=== PATIENT | female | born 1950 | race Caucasian/White ===

== ENCOUNTER 2019-07-13 17:34 | Emergency (ER) | payer OTHER, MEDICARE ==
--- NOTE | 2019-07-13 18:25 | ER Document Report ---
ED Medical Screen (RME) - General Chief Complaint: Fall Injury Stated Complaint: HEAD INJURY Time Seen by Provider: 07/13/19 18:17 Mode of Arrival: Wheelchair Information source: Patient Notes: 68-year-old female presented to ED for complaint of pain to the left side of her head and her face. She states she went to school with her granddaughter and fell on the cement face first injuring her face cheek nose and left knee. She has multiple abrasions to her left knee. She states the school nurse cleaned up enough in order to be able to come to the emergency room and then she is come to the emergency room. She states she just got off Xarelto from the case assembler about 3 days ago. She is alert oriented respirations regular and unlabored speaking in full sentences. She states most of the pain is in her head and in her nose and cheek. I have greeted and performed a rapid initial assessment of this patient. A comprehensive ED assessment and evaluation of the patient, analysis of test results and completion of medical decision making process will be conducted by an additional ED providers. - Related Data Allergies/Adverse Reactions: naproxen [From Naprosyn] Allergy (Verified 07/13/19 17:36) nitrofurantoin [From Macrodantin] Allergy (Verified 07/13/19 17:36) Penicillins Allergy (Verified 07/13/19 17:36) simvastatin [From Zocor] Allergy (Verified 07/13/19 17:36) Sulfa (Sulfonamide Antibiotics) Allergy (Verified 07/13/19 17:36) Physical Exam - Vital signs Vitals: Temp Pulse Resp BP Pulse Ox 98.0 F 80 15 97/71 L 96 07/13/19 17:41 07/13/19 17:41 07/13/19 17:41 07/13/19 17:41 07/13/19 17:41 Course - Vital Signs Vital signs: Temp Pulse Resp BP Pulse Ox 98.0 F 80 15 97/71 L 96 07/13/19 17:41 07/13/19 17:41 07/13/19 17:41 07/13/19 17:41 07/13/19 17:41
--- NOTE | 2019-07-13 18:50 | RADIOLOGY REPORT (SQ) ---
EXAM DESCRIPTION: KNEE LEFT 4 VIEW COMPLETED DATE/TIME: 07/13/2019 6:36 pm REASON FOR STUDY: fall hit head left knee COMPARISON: None. NUMBER OF VIEWS: Four views. TECHNIQUE: AP, lateral, and both oblique radiographic images acquired of the left knee. LIMITATIONS: None. FINDINGS: MINERALIZATION: Normal. BONES: No acute fracture or dislocation. No worrisome bone lesions. JOINT: No effusion. Status post medial compartment arthroplasty. SOFT TISSUES: No soft tissue swelling. No radio-opaque foreign body. OTHER: No other significant finding. IMPRESSION: No fracture or dislocation of the left knee. Status post medial compartment arthroplast y. TECHNICAL DOCUMENTATION: JOB ID: [id number] [employer]- All Rights Reserved Reading location - IP/workstation name: [email or web address]
--- NOTE | 2019-07-13 19:09 | RADIOLOGY REPORT (SQ) ---
EXAM DESCRIPTION: CT HEAD WITHOUT COMPLETED DATE/TIME: 07/13/2019 6:53 pm REASON FOR STUDY: fall hit head left knee COMPARISON: None. TECHNIQUE: Axial images acquired through the brain without intravenous contrast. Images reviewed wit h bone, brain and subdural windows. Images stored on PACS. All CT scanners at this facility use dose modulation, iterative reconstruction, and/or weight based d osing when appropriate to reduce radiation dose to as low as reasonably achievable (ALARA). [facility]: Dose Right [facility]: CareDose [facility]: Dose Right [facility]: Teradose 4D [facility]: Smart Prevacus RADIATION DOSE: CT Rad equipment meets quality standard of care and radiation dose reduction techniq ues were employed. CTDIvol: 48.5 mGy. DLP: 855 mGy-cm.. LIMITATIONS: None. FINDINGS: VENTRICLES: Normal size and contour. CEREBRUM: 3-4 mm area of density in the region of the left globus pallidus, measuring approximately 4 5 Hounsfield units, cannot exclude a small hemorrhage. No midline shift. Age appropriate white matter . No evidence for acute infarction. CEREBELLUM: No masses. No hemorrhage. No alteration of density. No evidence for acute infarction. EXTRA-AXIAL SPACES: No fluid collections. ORBITS AND GLOBE: No intra- or extraconal masses. Normal contour of globe without masses. CALVARIUM: No fracture. PARANASAL SINUSES: No fluid or mucosal thickening. SOFT TISSUES: No mass or hematoma. OTHER: No other significant finding. IMPRESSION: 3-4 mm area of density in the region of the left globus pallidus, measuring approximatel y 45 Hounsfield units, cannot exclude a small hemorrhage. EVIDENCE OF ACUTE STROKE: NO. COMMENT: The findings were sent to the Radiology Results Communication Center at 19:03 on 07/13/2019 to be communicated to a licensed caregiver. TECHNICAL DOCUMENTATION: JOB ID: [id number] [place]-72 Quality ID # [id number]: Final reports with documentation of one or more dose reduction techniques (e.g., Au tomated exposure control, adjustment of the mA and/or kV according to patient size, use of iterative reconstruction technique) 2010 [employer]- All Rights Reserved Reading location - IP/workstation name: [email or web address]
--- NOTE | 2019-07-13 19:12 | RADIOLOGY REPORT (SQ) ---
EXAM DESCRIPTION: CT FACIAL AREA WITHOUT COMPLETED DATE/TIME: 07/13/2019 6:54 pm REASON FOR STUDY: fall pain in nose and cheek COMPARISON: None. TECHNIQUE: Noncontrasted images through the facial bones and orbits windowed for bone and soft tissu e. Additional coronal and sagittal reconstructed images reviewed. All images stored on PACS. All CT scanners at this facility use dose modulation, iterative reconstruction, and/or weight based d osing when appropriate to reduce radiation dose to as low as reasonably achievable (ALARA). [facility]: Dose Right [facility]: CareDose [facility]: Dose Right [facility]: Teradose 4D [facility]: Smart [employer] RADIATION DOSE: mGy. LIMITATIONS: None. FINDINGS: FACIAL BONES: No fracture or bone lesion. ORBITS: Intact. No fracture. Symmetric intact globes and retroorbital soft tissues. PARANASAL SINUSES: Clear. No significant mucosal thickening, mass or fluid. No nasal polyps. Maxill victor m sinus outlets are patent. SOFT TISSUES: No mass or edema. INFERIOR BRAIN: Limited view. OTHER: No other significant finding. IMPRESSION: No fracture. TECHNICAL DOCUMENTATION: JOB ID: [id number] [place]-72 Quality ID # [id number]: Final reports with documentation of one or more dose reduction techniques (e.g., Au tomated exposure control, adjustment of the mA and/or kV according to patient size, use of iterative reconstruction technique) 2010 [employer]- All Rights Reserved Reading location - IP/workstation name: [email or web address]
[2019-07-13] MEDS ORDERED: LEVETIRACETAM 1000 MG/NACL-ISO 1,000 MG/100 ML RTUPB IV ONE (20:18)
--- NOTE | 2019-07-13 20:21 | ER Document Report ---
ED Fall - General Chief Complaint: Fall Injury Stated Complaint: HEAD INJURY Time Seen by Provider: 07/13/19 18:17 Mode of Arrival: Wheelchair Information source: Patient Notes: Patient is a 68 year old female that comes to the emergency department for chief complaint of a fall. The fall happened at approximately 1700, she states she tripped on her shoes while walking on the sidewalk and fell, hitting her head on the sidewalk and scraping her left knee and her right hand. She reports a hea dache and pain over the knee, denies other injuries. Denies visual changes, focal numbness or weakness, incontinence. She states she stopped Xarelto 3 days ago, she was previously on this because of a history of DVT. Medical history includes hypertension, diabetes, asthma/COPD. Granddaughter at bedside. She reports her tetanus is up-to-date within 5 years. - Related data Allergies/Adverse Reactions: naproxen [From Naprosyn] Allergy (Verified 07/13/19 17:36) nitrofurantoin [From Macrodantin] Allergy (Verified 07/13/19 17:36) Penicillins Allergy (Verified 07/13/19 17:36) simvastatin [From Zocor] Allergy (Verified 07/13/19 17:36) Sulfa (Sulfonamide Antibiotics) Allergy (Verified 07/13/19 17:36) Past Medical History - General Information source: Patient - Social History Smoking Status: Former Smoker Frequency of alcohol use: None Drug Abuse: None Lives with: Family Family History: Reviewed & Not Pertinent Patient has suicidal ideation: No Patient has homicidal ideation: No - Past Medical History Cardiac Medical History: Reports: Hx Hypertension Pulmonary Medical History: Reports: Hx Asthma, Hx COPD Endocrine Medical History: Reports: Hx Diabetes Mellitus Type 2 Renal/ Medical History: Denies: Hx Peritoneal Dialysis Past Surgical History: Reports: Hx Orthopedic Surgery - knee x2, neck - Immunizations Immunizations up to date: Yes Hx Diphtheria, Pertussis, Tetanus Vaccination: Yes Review of Systems - Review of Systems Constitutional: No symptoms reported EENT: No symptoms reported Cardiovascular: No symptoms reported Respiratory: No symptoms reported Gastrointestinal: No symptoms reported Genitourinary: No symptoms reported Female Genitourinary: No symptoms reported Musculoskeletal: See HPI Skin: See HPI Hematologic/Lymphatic: No symptoms reported Neurological/Psychological: See HPI Physical Exam - Vital signs Vitals: Temp Pulse Resp BP Pulse Ox 98.0 F 80 15 97/71 L 96 07/13/19 17:41 07/13/19 17:41 07/13/19 17:41 07/13/19 17:41 07/13/19 17:41 - Notes Notes: GENERAL: Alert, interacts well. No acute distress. HEAD: Normocephalic. Faint contusion to the left forehead and top of the bridge of the nose. No other traumatic findings noted. EYES: Pupils equal, round, and reactive to light. Extraocular movements intact. ENT: Oral mucosa moist, tongue midline. Oropharynx unremarkable. Airway patent. Nares patent, no nasal septal hematoma NECK: Full range of motion. Supple. Trachea midline. LUNGS: Clear to auscultation bilaterally, no wheezes, rales, or rhonchi. No respiratory distress. HEART: Regular rate and rhythm. No murmur ABDOMEN: Soft, non-tender. Non-distended. Bowel sounds present in all 4 quadrants. EXTREMITIES: Tiny abrasion over the side of the right hand without tenderness or swelling over the hand. Large abrasion over the left anterior knee, pain with range of motion of the knee but range of motion is present. Normal distal neurovascular exam. Extremities unremarkable otherwise. BACK: no cervical, thoracic, lumbar midline tenderness. No saddle anesthesia, normal distal neurovascular exam. Moves all extremities in full range of motion. NEUROLOGICAL: Alert and oriented to person place but not to time. GCS of 14. Normal speech. Cranial nerves II through XII grossly intact. PSYCH: Normal affect, normal mood. SKIN: Warm, dry, normal turgor. No rashes or lesions noted. Course - Re-evaluation Re-evalutation: X-rays unremarkable, CT showing possible intracranial hemorrhage measuring 3 to 4 mm in the left globus pallidus. On my evaluation patient is telling me it is the year 1999 and she is sluggish with answering questions. She is oriented otherwise however. Nurse tells me that patient initially was completely oriented and quick with answers, GCS change from 15-14. Otherwise she is alert and well-appearing. Other than head injury she only has abrasions, no other signs of concerning injury. Patient placed on monitor, labs ordered and pending, given Keppra prophylaxis for seizure, given Zofran for mild nausea that patient is complaining of now. I discussed with Dr. Julio, discussed with patient and granddaughter, they requested transfer to [facility] for trauma services. 07/13/19 20:[address] Colon, on-call physician for [facility], patient is accepted for transfer. CBC unremarkable including platelets. Coagulation studies are unfortunately prolonged still. Chemistry shows some renal insufficiency at creatinine of 1.57, however I do not know the patient's baseline. Sodium is slightly low, potassium slightly low. 07/13/19 22:05 Unable to have ground transport picker operator the patient. I am being told by nursing that [facility] recommending flight, I discussed with Dr. Fitzpatrick, I discussed this with patient she states agreement. Transport team will be here in about 15 minutes. On reevaluation at bedside patient is still sluggish in responding but she is still responsive and alert, she still gets the year incorrect but answers other questions correctly. GCS of 14. No decompensation from previous exams performed by me. Vital signs without any change. Patient is stable for transport. - Vital Signs Vital signs: Temp Pulse Resp BP Pulse Ox 97.8 F 59 L 17 122/52 L 97 07/13/19 22:11 07/13/19 22:11 07/13/19 22:11 07/13/19 22:11 07/13/19 22:11 - Laboratory Result Diagrams: 07/13/19 20:27 07/13/19 20:27 Laboratory results interpreted by me: 07/13/19 07/13/19 20:27 20:27 PT 16.3 H APTT 38.8 H Sodium 133.7 L Potassium 3.2 L Chloride 94 L BUN 23 H Creatinine 1.57 H Est GFR ( Amer) 40 L Est GFR (MDRD) Non-Af 33 L Glucose 123 H Critical Care Note - Critical Care Note Total time excluding time spent on procedures (mins): 35 - intracranial hemorrhage Comments: Please allow 35 minutes of critical care time for evaluation and management of patient with acute intracranial hemorrhage from a trauma. Interventions including antiepileptics, time spent discussing with patient and family, time spent discussing and transferring to trauma center, time spent performing multiple re-evaluations. Discharge - Discharge Clinical Impression: Intracranial hemorrhage Fall Qualifiers: Encounter type: initial encounter Qualified Code(s): W19.XXXA - Unspecified fall, initial encounter Head injury Qualifiers: Encounter type: initial encounter Qualified Code(s): S09.90XA - Unspecified injury of head, initial encounter Abrasion of left knee Qualifiers: Encounter type: initial encounter Qualified Code(s): S80.212A - Abrasion, left knee, initial encounter Condition: Stable Disposition: [facility]
[2019-07-13] MEDS ORDERED: ONDANSETRON HCL INJ/PF 4 MG/2 ML SDV IV ONE (20:26)
[2019-07-13 20:41] LABS: ABSOLUTE EOSINOPHILS # (AUTO) 0.2 10^3/uL (0.0-0.6); ABSOLUTE LYMPHOCYTES (AUTO) 1.6 10^3/uL (0.5-4.7); ABSOLUTE MONOCYTES (AUTO) 0.8 10^3/uL (0.1-1.4); ABSOLUTE NEUT (AUTO) 5.9 10^3/uL (1.7-8.2); BASOPHILS % (AUTO) 0.5 % (0-2); EOSINOPHILS % (AUTO) 2.4 % (0-6); HEMATOCRIT 39.9 % (36.0-47.0); HEMOGLOBIN 13.1 g/dL (12.0-15.5); MEAN CORPUSCULAR HEMOGLOBIN 30.1 pg (27.0-33.4); MEAN CORPUSCULAR VOLUME 92 fl (80-97); MONOCYTES % (AUTO) 9.5 % (3-13); PLATELET COUNT 243 10^3/uL (150-450); RED BLOOD COUNT 4.36 10^6/uL (3.72-5.28); RED CELL DISTRIBUTION WIDTH 13.9 % (11.5-14.0); SEGMENTED NEUTROPHILS % (AUTO) 68.6 % (42-78); TOTAL CELLS COUNTED % (AUTO) 100 %; WHITE BLOOD COUNT 8.6 10^3/uL (4.0-10.5)
[2019-07-13 20:52] LABS: PROTHROMBIN TIME 16.3 SEC (11.4-15.4)
[2019-07-13 20:53] LABS: PARTIAL THROMBOPLASTIN TIME 38.8 SEC (23.5-35.8)
[2019-07-13 20:56] LABS: ANION GAP 13 (5-19); BLOOD UREA NITROGEN 23 mg/dL (7-20); CALCIUM 9.2 mg/dL (8.4-10.2); CARBON DIOXIDE 27 mmol/L (22-30); CHLORIDE 94 mmol/L (98-107); GLUCOSE 123 mg/dL (75-110); POTASSIUM 3.2 mmol/L (3.6-5.0)
[2019-07-13 22:36] VITALS: BP 122/52
== END 2019-07-13 22:30 | disposition short-term general hospital (02) ==
LOC: ER 17:34
DX: S06.309A Unspecified focal traumatic brain injury with loss of consciousness of unspecified duration, initial encounter (principal); S80.212A Abrasion, left knee, initial encounter; S60.511A Abrasion of right hand, initial encounter; W01.0XXA Fall on same level from slipping, tripping and stumbling without subsequent striking against object, initial encounter; Y93.89 Activity, other specified; Y92.480 Sidewalk as the place of occurrence of the external cause; N28.9 Disorder of kidney and ureter, unspecified; E11.9 Type 2 diabetes mellitus without complications; I10 Essential (primary) hypertension; J44.9 Chronic obstructive pulmonary disease, unspecified; Z88.8 Allergy status to other drugs, medicaments and biological substances; Z88.1 Allergy status to other antibiotic agents; Z88.0 Allergy status to penicillin; Z88.2 Allergy status to sulfonamides; Z87.891 Personal history of nicotine dependence
CPT/HCPCS: 36415; 85025; 85610; 85730; 80048; 73564; 70450; 70486; J2405; J1953